=== PATIENT | male | born 1960 | race African-American/Black ===

== ENCOUNTER 2021-07-05 22:47 | Emergency (ER) | payer OTHER ==
[~2021-07-05] VITALS: Ht 175.3 cm; Wt 117.0 kg
[2021-07-06] MEDS ORDERED: ACETAMINOPHEN WITH CODEINE 300/60MG TABLET PO ONE (00:45)
[2021-07-06 01:00] LABS: HEMATOCRIT. 46.4 % (42.0-52.0); HEMOGLOBIN. 15.9 g/dL (14.0-18.0); MEAN CORPUSCULAR HEMOGLOBIN 29.8 pg (28.0-32.0); MEAN CORPUSCULAR VOLUME 86.6 fL (80.0-94.0); MEAN PLATELET VOLUME 10.5 fl (7.4-10.4); PLATELET 164 x1000/uL (130-400); RED BLOOD CELL COUNT 5.35 mill/uL (4.7-6.1); RED CELL DISTRIBUTION WIDTH 13.2 % (11.6-14.6)
[2021-07-06 01:02] LABS: CHLORIDE 100 mEq/L (98-107)
[2021-07-06] MEDS ORDERED: AZIT500T8 MT (01:30)
[2021-07-06] MEDS ORDERED: DEXT15LI MT (01:33)
[2021-07-06 02:26] VITALS: BP 127/74
[2021-07-06 04:21] LABS: PLATELET ESTIMATE NORMAL
== END 2021-07-06 02:32 | disposition home or self-care (01) ==
LOC: ER 22:47
DX: J18.9 Pneumonia, unspecified organism (principal); Z20.822 Contact with and (suspected) exposure to COVID-19
CPT/HCPCS: 36415; 71045; 80053; 84484; 85025; 87426; 93005; 99285